=== PATIENT | male | born 1980 | race Caucasian/White ===

== ENCOUNTER 2016-11-04 13:15 | Emergency (ER) | payer SELFPAY ==
[~2016-11-04] VITALS: Ht 172.7 cm; Wt 124.9 kg
[2016-11-04 13:21] VITALS: TEMP 37.1; Ht 172.7 cm; Wt 124.9 kg
[2016-11-04] MEDS ORDERED: DIPHTHERIA/TETANUS/PERTUSSIS 0.5 ML SYR/VIAL IM. ONE (14:00)
[2016-11-04] MEDS ORDERED: AMOX875T PO (14:06)
--- NOTE | 2016-11-04 14:07 | EMERGENCY ROOM VISIT NOTE ---
ED Visit Note First contact with patient: 13:24 CHIEF COMPLAINT: Hand laceration HISTORY OF PRESENT ILLNESS: This 36-year-old male patient presents to the emergency department ambulatory after cutting the right hand when he was using a knife last night around 11 PM. The patient states that the knife slipped and punctured the palm of his right hand. The bleeding has stopped. Denies weakness or numbness of the hand or fingers. He states he has had soreness in the second and third fingers but denies any numbness. The patient denies any pain. The patient denies any other injuries. The patient's Tetanus shot is not up to date. REVIEW OF SYSTEMS: A 6 system review of systems was completed with positives and pertinent negatives listed in the HPI. ALLERGIES: No known drug allergies MEDICATIONS: None PMH: Patient denies SOCIAL HISTORY: The patient lives locally PHYSICAL EXAM: Vital Signs: Reviewed Nurse's notes, vital signs stable. GENERAL : This is a 36-year-old male, in no acute distress, well-developed, well- nourished. SKIN: There is a 1 cm long laceration on the palmar aspect of the right hand. The edges do not significantly gape apart with traction. There is no foreign material in the wound and it looks clean. There is minimal surrounding erythema around the wound itself with no lymphangitic streaking or swelling. There is no bleeding. No deep structures such as tendons, bones, or nerves are seen in the base of the wound. Normal strength and movement of the fingers and wrist. Capillary refill less than 2 seconds. Normal sensation to light and sharp touch. EMERGENCY DEPARTMENT COURSE: I examined the patient. The patient has a laceration/puncture to the palm of the right hand. The patient has good strength and good range of motion. He does not have any decreased sensation. The wound does not appear to be particularly deep. However I cannot visualize it to the base. This occurred last night around 11 PM. I feel that closure of this wound would increase risk of infection. The wound was cleaned and irrigated. A dressing and splint were placed. The patient will be placed on Augmentin. He should follow-up with orthopedics for recheck to ensure that this is healing well and the discomfort resolves and to evaluate for potential tendon injury. He should return sooner with any worsening symptoms. The patient was given Td immunization. The patient was discharged home in good condition. Current/Historical Medications Scheduled Amoxicillin & Pot Clavulanate (Augmentin 875-125 mg), 1 TAB PO BID Allergies Coded Allergies: No Known Allergies (Unverified , 11/04/16) Vital Signs Date Time Temp Pulse Resp B/P (MAP) Pulse Ox O2 Delivery O2 Flow Rate FiO2 11/04/16 14:36 81 16 172/105 96 Room Air 11/04/16 13:21 37.1 78 18 155/115 100 Room Air Medications Administered Medications (Trade) Dose Ordered Sig/Jameson Route Start Time Stop Time Status Last Admin Dose Admin Diphtheria/ Pertussis/Tetanus Vacc (Adacel Inj) 0.5 ml ONCE ONCE IM. 11/04/16 14:00 11/04/16 14:01 DC 11/04/16 14:04 0.5 ML Departure Information Impression Primary Impression: Laceration Dispostion Home / Self-Care Condition GOOD Prescriptions Amoxicillin & Pot Clavulanate (Augmentin 875-125 mg) 1 Tab Tab 1 TAB PO BID for 7 Days, #14 TAB Prov: Lesa Ramires PA-C 11/04/16 Referrals Jorge Colunga M.D. (PCP) Jackson Lu MD Patient Instructions [facility] Additional Instructions Keep the wound clean and dry. Wear the splint until seen by orthopedics Contact orthopedics first thing in the morning to schedule a follow-up appointment for further evaluation and management Augmentin every 12 hours for 7 days to help prevent infection Return to the emergency Department with any worsening symptoms
[2016-11-04 14:36] VITALS: BP 172/105; PULSE 81; O2SAT 96
== END 2016-11-04 14:39 | disposition home or self-care (01) ==
LOC: C.EDB 13:16 → C.EDD 14:39
DX: S61.411A Laceration without foreign body of right hand, initial encounter (principal); W26.0XXA Contact with knife, initial encounter